=== PATIENT | female | born 2000 | race Caucasian/White ===

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

== ENCOUNTER 2021-02-15 17:41 | Emergency (ER) | payer BC, OTHER ==
[~2021-02-15] VITALS: Ht 170.2 cm; Wt 61.2 kg
[~2021-02-15 17:41] MED LIST changes: +ACCUNEB SO1.25 MG/1 INH; +ALVESCO6.1 GM; +FLEXERIL PO
[2021-02-15 17:59] LABS: URINE BILIRUBIN NEGATIVE (Negative); URINE BLOOD 1+ (Negative); URINE CLARITY CLEAR; URINE COLOR YELLOW; URINE GLUCOSE-RANDOM* NEGATIVE (Negative); URINE KETONES NEGATIVE (Negative); URINE LEUKOCYTES-REFLEX NEGATIVE (Negative); URINE NITRITE-REFLEX NEGATIVE (Negative); URINE PROTEIN (DIPSTICK) NEGATIVE (Negative); URINE SPECIFIC GRAVITY <= 1.005 (1.005-1.035); URINE UROBILINOGEN 0.2 E.U./dl (0.2-1.0)
[2021-02-15 18:06] LABS: ABSOLUTE NEUTROPHILS 7.3 thou/uL (1.4-8.2); BASOPHILS 0.3 % (0.0-2.0); EOSINOPHILS 1.4 % (0.0-3.0); HEMATOCRIT 42.1 % (37.0-47.0); HEMOGLOBIN 14.3 gm/dL (12.0-15.0); LYMPHOCYTES 21.8 % (24.0-44.0); MCH 31.6 pg (26.0-34.0); MCHC 33.9 g/dL (28.0-37.0); MCV 93.3 fL (80.0-100.0); MONOCYTES 6.3 % (1.0-8.0); PLATELET COUNT 336 thou/uL (150-400); POLYS 70.2 % (36.0-66.0); RBC 4.52 mil/uL (4.20-5.00); RDW 12.2 % (10.5-14.5); WBC 10.5 thou/uL (4.0-11.0)
[2021-02-15 18:13] LABS: BACTERIA-REFLEX 1-9 Few /HPF (None Seen); CASTS None Seen /LPF (None Seen); CRYSTALS None Seen /LPF (None Seen); SQUAMOUS 0-3 Few /LPF (0-3); URINE RBC 1-2 Rare /HPF (NONE SEEN); URINE WBC-REFLEX 0-5 Rare /HPF (0-5)
[2021-02-15 18:32] LABS: ALBUMIN 4.4 g/dL (3.4-5.0); CALCIUM 9.1 mg/dL (8.5-10.1); CREATININE 0.7 mg/dL (0.6-1.0); POTASSIUM 4.1 mmol/L (3.5-5.1); TOTAL BILIRUBIN 0.2 mg/dL (0.2-1.0); TOTAL PROTEIN 7.9 g/dL (6.4-8.2)
[2021-02-15] MEDS ORDERED: SYMBICORT80 MCG/4.1 INH (18:50)
[2021-02-15] MEDS ORDERED: MOBIC7.5 MG PO (22:03)
[2021-02-15 22:44] VITALS: BP 110/62
== END 2021-02-15 22:45 | disposition home or self-care (01) ==
LOC: ER 17:41
PROVIDERS: Emergency Medicine; Physician Assistant
DX: N83.201 Unspecified ovarian cyst, right side (principal); J45.909 Unspecified asthma, uncomplicated; Z79.899 Other long term (current) drug therapy; Z88.6 Allergy status to analgesic agent